=== PATIENT | male | born 1945 | race Caucasian/White ===

== ENCOUNTER → 2020-04-25 | Outpatient (CLI) | payer MEDICARE, OTHER ==
[~2020-04-25] MED LIST: FINA5TAB4 PO; LEVO75TA5 PO; LISI-334 PO; LOTE3.5O OD; TAMS0.4C97 PO; WARF7.5T45 PO
== END | disposition home or self-care (01) ==
LOC: LAB 10:01
PROVIDERS: ATTEND Internal Medicine Gastroenterology
DX: Z01.818 Encounter for other preprocedural examination (principal); Z11.59 Encounter for screening for other viral diseases
CPT/HCPCS: U0003-CS

== ENCOUNTER → 2020-04-30 | Day surgery (SDC) | payer MEDICARE, OTHER ==
[~2020-04-30] MED LIST changes: +IV RINGERS,LACTATED 1000ML 1,000 ML IV SCH; +PROPOFOL 10 MG/ML (20ML) VIAL. IV ONE
[2020-04-30 10:05] VITALS: BP 162/66
--- NOTE | 2020-04-30 14:42 | CONS ---
DATE OF CONSULTATION: 04/30/2020 GASTROENTEROLOGY CONSULTATION REASON FOR CONSULTATION: Colorectal screening. REFERRING PHYSICIAN: Murray Ellis MD HISTORY OF PRESENT ILLNESS: A 75-year-old male with past medical history significant for hypothyroidism, BPH, hypertension as well as a history of deep venous thrombosis, on warfarin, is seen for screening colon exam. Bowel habits are regular without diarrhea or constipation. There has been no melena and/or hematochezia. Weight and appetite are stable. Previous colonoscopy approximately a decade ago was unrevealing. He is otherwise without additional complaints. PAST MEDICAL HISTORY: DVTs, high blood pressure, hypothyroidism, BPH. ALLERGIES: None. MEDICATIONS: Include finasteride, levothyroxine, lisinopril, Flomax, and warfarin. PAST SURGICAL HISTORY: Cataract surgery, hernia surgery, benign bladder tumor. SOCIAL HISTORY: Does drink wine, does not smoke. FAMILY HISTORY: Otherwise is significant for high blood pressure with his father, stroke with his grandmother. REVIEW OF SYSTEMS: NEUROLOGIC: No stroke, migraine, neuropathy. PSYCHIATRIC: No mood swings, depression, or insomnia. CARDIAC: History of DVTs and hypertension. ENDOCRINE: History of hypothyroidism. HEMATOLOGIC: No bleeding, bruising, or coagulopathy, but there is history of DVTs. GASTROINTESTINAL: See history of present illness. DERMATOLOGIC: No skin rashes or pruritus. RENAL: There was ____ hematuria. There is increased frequency of urination as well as BPH. MUSCULOSKELETAL: History of osteoarthrosis. PULMONARY: No shortness of breath, productive cough, or asthma. PHYSICAL EXAMINATION: GENERAL: Reveals a well-nourished, well-developed male who is alert, cooperative, in no acute distress. VITAL SIGNS: Pulse is 70, respiratory rate 18, blood pressure is 130/75. LUNGS: Clear. CARDIOVASCULAR: Reveals an S1, S2 without S3, S4 or appreciable murmur. ABDOMEN: Reveals a soft abdomen. Normal bowel sounds, without appreciable hepatosplenomegaly. EXTREMITIES: Reveals no cyanosis, clubbing or edema. IMPRESSION: Colorectal screening is warranted at this time. Risks and benefits of procedure including risk of hemorrhage and perforation discussed. The patient is willing to proceed at this time. CINDA VILLA MD DR: COLBY/braden JOB#: [id number] / [id number]
--- NOTE | 2020-05-01 15:07 | PATHOLOGY ---
[facility] Accession Number: [id number] . 01 Material submitted: . colon - TRANSVERSE COLON POLYP. Modifiers: transverse . 01 Clinical history: . CRCS . 02 Diagnosis: Colon biopsy, transverse colon polyp: - Tubular adenoma. (JPM:[facility]; 05/01/2020) S 05/01/2020 0840 Local . 02 Comment: There is no high grade dysplasia or evidence of malignancy. (JPM:delfina; 05/01/2020) . 02 Electronically signed: . Sameer Jean-Baptiste MD, Pathologist NPI- [id number] . 01 Gross description: . The specimen is received in formalin, labeled "Haim Ross", "transverse colon polyp". Received is a single polypoid segment of pale kumar soft tissue measuring 0.4 cm. The specimen is entirely submitted in cassette A1.([facility]; 04/30/2020) GORDO/FADY 04/30/2020 1724 Local . 02 Pathologist provided ICD-10: D12.3 . 02 CPT . 776445 Specimen Comment: A courtesy copy of this report has been sent to [phone], [phone] Specimen Comment: [id number] Specimen Comment: Report sent to / DR AVILEZ Performed at: 01 [facility] [address], [place], [place] [id number] MD Sherwin Valles MD Phone: [phone] Performed at: 02 [facility] [address] [place], [place] [id number] MD Sameer Jean-Baptiste MD Phone: [phone]
== END | disposition home or self-care (01) ==
LOC: ENDOS 07:43
PROVIDERS: ATTEND Internal Medicine Gastroenterology
DX: Z12.11 Encounter for screening for malignant neoplasm of colon (principal); D12.3 Benign neoplasm of transverse colon; K64.0 First degree hemorrhoids; K57.30 Diverticulosis of large intestine without perforation or abscess without bleeding; E03.9 Hypothyroidism, unspecified; N40.0 Benign prostatic hyperplasia without lower urinary tract symptoms; I10 Essential (primary) hypertension; Z86.718 Personal history of other venous thrombosis and embolism; Z79.899 Other long term (current) drug therapy; Z98.890 Other specified postprocedural states; Z82.49 Family history of ischemic heart disease and other diseases of the circulatory system; Z82.3 Family history of stroke
CPT/HCPCS: 45385; J2704